=== PATIENT | male | born 1980 | race Caucasian/White ===

== ENCOUNTER 2017-12-04 15:55 | Emergency (ER) | payer MEDICAID, SELFPAY ==
[2017-12-04 15:56] VITALS: BP 132/78; PULSE 94; RESP 15; TEMP 37.1; O2SAT 97; BMI 43.0
--- NOTE | 2017-12-04 16:08 | ED.DCSUM_ITS ---
- ER Visit Summary Date of Service: 12/04/17 Chief Complaint: Laceration History of Present Illness: The patient is a 37 M [id number] laceration right hand and finger 45 minutes prior to arrival. Trying to pry open can when he cut his finger and his palm. Tetanus unknown. No anticoagulants. No paresthesias. Physical Examination: General: Alert and oriented ?3, no acute distress HEENT: Normocephalic, atraumatic. Moist mucosa membranes Neck: supple, nontender. Cardiovascular: Regular rate and rhythm, no murmurs Respiratory: Normal breath sounds, symmetric, no distress Abdomen: Soft, nontender, nondistended Extremities: Nontender, no edema, pulses intact ?4. Right hand: Active full range of motion index at the PIP and DIP with no pain against resistance. Neuro: no focal neurological deficits. Skin: Right hand: Thenar aspect 1 cm superficial laceration dry blood, index with a 2 and half centimeter flap laceration of the middle phalanx volar subcu exposure, no tendon exposure. No active bleeding. Test Results: [] Emergency Department Course and Treatment: Patient injuries were no tendon or complexity. Right index repaired using a total of 3, 5-0simple sutures. Right palm repaired with 1, 5-0 sutures. Tetanus was updated. Wound care discussed. Follow-up with his PCP for suture removal. Treatment Plan: [] Disposition: Discharge Impression: 1. Right index laceration 2. Right hand laceration 3. Tetanus update This note was generated with [employer] dictation software. It may contain incorrect words, spelling, and punctuation that were not noted in review of the chart prior to signing ED Disposition - Plan for ED Patient: Disposition: Home or Assisted Living Chief Complaint: Laceration Diagnosis: Laceration of right index finger w/o foreign body w/o damage to nail, Laceration of right hand, Tetanus toxoid vaccination administered at current visit Instructions: ED Laceration Hand Referrals: Pete Fraire MD [Primary Care Provider] - 10-14 Days suture removal
[2017-12-04] MEDS: Diphth,Pertuss(Acell),Tet Vac 0.5 ML Vial IM (16:34)
[2017-12-04 16:53] VITALS: BP 120/76; PULSE 81; RESP 18; O2SAT 96
== END 2017-12-04 16:54 | disposition home or self-care (01) ==
LOC: ED 16:41
PROVIDERS: Emergency Provider Emergency Medicine; Family Provider Family Medicine; PCP Family Medicine
DX: S61.210A Laceration without foreign body of right index finger without damage to nail, initial encounter (principal); S61.411A Laceration without foreign body of right hand, initial encounter; W26.8XXA Contact with other sharp object(s), not elsewhere classified, initial encounter; Y93.89 Activity, other specified; F32.9 Major depressive disorder, single episode, unspecified; F41.9 Anxiety disorder, unspecified; Z79.899 Other long term (current) drug therapy
CPT/HCPCS: 12002; 90715; 99284

== ENCOUNTER 2018-11-08 09:00 | Emergency (ER) | payer SELFPAY ==
[2018-11-08 09:00] VITALS: BP 147/87; PULSE 105; RESP 17; TEMP 36.8; O2SAT 95; BMI 39.3
--- NOTE | 2018-11-08 09:41 | EKG12_ITS ---
Test Reason : DIZZINESS Blood Pressure : / mmHG Vent. Rate : 091 BPM Atrial Rate : 091 BPM P-R Int : 184 ms QRS Dur : 090 ms QT Int : 342 ms P-R-T Axes : 063 -54 038 degrees QTc Int : 420 ms Normal sinus rhythm Left axis deviation Low voltage QRS Abnormal ECG Confirmed by COLBY AMADOR, OLGA ([id number]), publishing editor HAO WARD ([id number]) on 11/10/2018 1:40:58 PM Referred By: KYM Confirmed By:PORTIA BOWMAN MD
--- NOTE | 2018-11-08 09:42 | ED.DCSUM_ITS ---
History of Present Illness Chief Complaint: Dizziness Detail of Chief Complaint: Dizzy, visual hallucinations Informant: Patient, Family Onset: Days Narrative: Patient presents with his mother for evaluation. He states he had difficulty sleeping for the past 2 weeks. He got a phone call this morning that his contract for his job was not going to be renewed and he is now out of the job. He reportedly woke his mother up at 3:00 this morning stating that his sister and [id number] were there and he was going to go cook for them. There was no one in the home. Is also making comments today about his nephews being in the home and they were not present. Patient reportedly had some dizziness earlier this morning. He stated that when he would first stand up or for sit down he would feel dizzy briefly, but symptoms were quickly subside. He denied chest pain or palpitations. Patient does have a history of depression and is treated at the counseling center. He denies recent changes to his medication. He states that when the nurse in triage asked him questions about depression and suicidality, he and answered truthfully and stated that he had had thoughts recently. He denies active suicidal thoughts to me at this present time. - Past Medical History (1) Major depressive disorder Status: Acute Past Medical History - Allergies and Home Meds Allergies/Adverse Reactions: Allergies latex Allergy (Verified 11/08/18 09:00) Swelling DUST Allergy (Uncoded 11/08/18 09:00) Shortness of breath TAPE Adverse Reaction (Uncoded 11/08/18 09:00) Other Primary Care Physician: Pete Fraire MD [Primary Care Provider] - Prior records reviewed: Yes Past Medical History: - - Reviewed Lives: With Family Smoking Status: Never smoker Review of Systems General: Denies: Chills, Fever Eyes: Denies: Visual changes - bilaterally ENT: Denies: Bilateral ear pain, Sore throat Cardiovascular: Denies: Chest pain, Palpitations Respiratory: Denies: Dyspnea, Cough Gastrointestinal: Denies: Abdominal pain, Nausea, Vomiting, Diarrhea Genitourinary: Denies: Dysuria Musculoskeletal: Denies: Neck pain, Back pain, Extremity Pain Skin: Denies: Rash Neurological: Denies: Headache Psych: Reports: Depression, Suicidal thoughts Hematologic: Denies: Easy bruising Allergy: Denies: Uticaria Physical Exam Vital Signs/Narrative: Vital Signs Temp Pulse Resp BP Pulse Ox 11/08/18 09:00 98.3 F 105 H 17 147/87 H 95 General: Well nourished, Well developed Head: Normocephalic ENT: Moist mucous membranes Neck: Supple Cardiovascular: Regular rate, Regular rhythm Respiratory: No distress, CTA bilaterally Abdomen: Soft, Nontender, Normal bowel sounds Extremities: Nontender, No edema Skin: Normal color, No rash Neurological: Alert, Oriented x3 Psychological: Normal affect - Flat affect. Denies active suicidal thoughts. Diagnostic/Tx/Re-eval Laboratory Results 11/08/18 11/08/18 11/08/18 09:38 10:00 10:00 WBC 14.9 H RBC 5.11 Hgb 14.2 Hct 43.6 MCV 85.3 MCH 27.8 MCHC 32.6 RDW Std Deviation 38.4 RDW Coeff of Gala 12.3 Plt Count 311 MPV 10.0 Immature Gran % (Auto) 0.700 Neut % (Auto) 76.1 H Lymph % (Auto) 16.6 L [place] % (Auto) 5.2 Eos % (Auto) 0.9 Baso % (Auto) 0.5 Absolute Neuts (auto) 11.3 H Absolute Lymphs (auto) 2.46 Nucleated RBC % 0 Sodium 136 Potassium 4.1 Chloride 105 Carbon Dioxide 26.0 Anion Gap 5 BUN 17 Creatinine 0.86 Estim Creat Clear Calc 129.08 Est GFR (MDRD) Af Amer 130 Est GFR (MDRD) Non-Af 107 BUN/Creatinine Ratio 19.9 Glucose 103 Calcium 9.4 Urine Color Urine Clarity Urine pH Ur Specific [place] Urine Protein Urine Glucose (UA) Urine Ketones Urine Occult Blood Urine Nitrite Urine Bilirubin Urine Urobilinogen Ur Leukocyte Esterase Urine RBC Urine WBC Ur Squamous Epith Cells Urine Bacteria Urine Mucus Urine Opiates Screen Urine Methadone Screen Ur Barbiturates Screen Ur Phencyclidine Scrn Ur Amphetamines Screen U Methamphetamin-MDMA U Benzodiazepines Scrn [place] 0.40 L Urine Cocaine Screen U Cannabinoids Screen Ur Drug Screen Comment Ethyl Alcohol 11/08/18 11/08/18 11/08/18 10:00 10:25 10:25 WBC RBC Hgb Hct MCV MCH MCHC RDW Std Deviation RDW Coeff of [place] Plt Count MPV Immature Gran % (Auto) Neut % (Auto) Lymph % (Auto) [place] % (Auto) Eos % (Auto) Baso % (Auto) Absolute Neuts (auto) Absolute Lymphs (auto) Nucleated RBC % Sodium Potassium Chloride Carbon Dioxide Anion Gap BUN Creatinine Estim Creat Clear Calc Est GFR (MDRD) Af Amer Est GFR (MDRD) Non-Af BUN/Creatinine Ratio Glucose Calcium Urine Color Yellow Urine Clarity Clear Urine pH 6.0 Ur Specific [place] 1.015 Urine Protein Negative Urine Glucose (UA) Normal Urine Ketones Negative Urine Occult Blood Negative Urine Nitrite Negative Urine Bilirubin Negative Urine Urobilinogen Normal Ur Leukocyte Esterase Negative Urine RBC 0 SEEN Urine WBC 0 SEEN Ur Squamous Epith Cells 0 SEEN Urine Bacteria 0 SEEN Urine Mucus 0 SEEN Urine Opiates Screen NEGATIVE Urine Methadone Screen NEGATIVE Ur Barbiturates Screen NEGATIVE Ur Phencyclidine Scrn NEGATIVE Ur Amphetamines Screen NEGATIVE U Methamphetamin-MDMA NEGATIVE U Benzodiazepines Scrn NEGATIVE [place] Urine Cocaine Screen NEGATIVE U Cannabinoids Screen POSITIVE H Ur Drug Screen Comment Ethyl Alcohol 6.0 - EKG Initial EKG Interpretation: Sinus Rhythm - Sinus at 91 with no acute ischemia. - Medical Decision Making Patient remained stable throughout his ED stay. He was evaluated by crisis. Patient states that he has been off his sleeping meds for the past 3 weeks. He started taking Ambien again just recently. He thinks he actually took 2 tabs last night and thinks that is probably why he had the visual hallucinations. He reports chronic suicidal thoughts without any intention to act on them. Mother states that she will take his medications and dispenses appropriately until he is back on his Ambien on a regular basis. He is able to sign a safety contract and counseling center will follow up with him tomorrow. ED Disposition - Plan for ED Patient: Disposition: Home or Assisted Living Diagnosis: Dizziness, Medication side effect Instructions: Tips for Taking Medications Referrals: Pete Fraire MD [Primary Care Provider] -
--- NOTE | 2018-11-08 09:44 | NURSING ---
NO OLD EKGS
--- NOTE | 2018-11-08 09:53 | NURSING ---
NO OLD EKGS
[2018-11-08 10:17] LABS: Absolute Lymphocyte Count 2.46 X10^3/uL (0.83-4.51); Absolute Neutrophil Count 11.3 X10^3/uL (2.0-7.7); Basophil# 0.08 X10^3/uL; Basophil% 0.5 % (0-1); Eosinophil# 0.14 X10^3/uL; Eosinophils% 0.9 % (0-5); Hematocrit 43.6 % (40-54); Hemoglobin 14.2 g/dL (13.0-16.5); Lymphocyte # 2.46 X10^3/ul (4.0); Lymphocyte % 16.6 % (19-41); Mean Corp Hgb Conc 32.6 g/dL (32-36); Mean Corpuscular Hgb 27.8 pg (27.0-32.0); Mean Corpuscular Volume 85.3 fL (80-94); Monocyte# 0.77 X10^3/uL; Monocyte% 5.2 % (0-10); NRBC Flagged by Analyzer 0 % (0-5); Neutrophil % 76.1 % (47-70); Platelet Count 311 K/mm3 (150-450); RBC Distribution Width CV 12.3 % (11.6-14.6); RBC Distribution Width SD 38.4 fl (35.1-43.9); Red Blood Count 5.11 M/mm3 (4.6-6.2); White Blood Count 14.9 K/mm3 (4.4-11.0)
[2018-11-08 10:18] LABS: Anion Gap 5 (5-15); BUN 17 mg/dL (7-18); BUN/Creat Ratio 19.9 RATIO (10-20); Calcium,Total 9.4 mg/dL (8.5-10.1); Chloride 105 mmol/L (98-107); Creatinine, Serum 0.86 mg/dL (0.70-1.30); EST Glomerular Filtration Rate 107 mL/min (>60); Est Glom Filt Rate - Afr Amer 130 mL/min (>60); Estimated Creatinine Clearance 129.08 ml/min; Glucose 103 mg/dL (74-106); Potassium 4.1 mmol/L (3.5-5.1); Sodium Level 136 mmol/L (136-145)
[2018-11-08] MEDS: 0.9% Normal Saline 1,000 ML 1000 ML IV (10:22)
[2018-11-08 10:42] LABS: Bacteria 0 SEEN /hpf (None Seen); Color, Urine Yellow (Yellow); Glucose, Dipstick Normal (Normal); Ketone-Dipstick Negative (Negative); Leukocyte Esterase-Dipstick Negative /ul (Negative); Mucous, Urine 0 SEEN /hpf (<or=2+); Nitrite-Dipstick Negative (Negative); Occult Blood-Urine Negative /ul (Negative); Protein-Dipstick Negative (Negative); Red Blood Cells-Urine 0 SEEN /hpf (0-5); Specific Gravity, Urine 1.015 (1.002-1.030); Squamous Epithelial Cells - UA 0 SEEN /hpf (0-5); Urine Bilirubin Dipstick Negative (Negative); Urine Clarity Clear (Clear); Urine Urobilinogen Normal (Normal); White Blood Cells 0 SEEN /hpf (0-5)
[2018-11-08 11:00] VITALS: RESP 16
[2018-11-08 11:16] LABS: Amphetamine Urine VISTA NEGATIVE (<1000 ng/mL); Barbiturate Urine VISTA NEGATIVE (< 200 ng/mL); Benzodiazepine Urine VISTA NEGATIVE (< 200 ng/mL); Cocaine Urine VISTA NEGATIVE (< 300 ng/mL); Ecstacy Urine VISTA NEGATIVE (< 500 ng/mL); Methadone Urine VISTA NEGATIVE (< 300 ng/mL); PCP Urine VISTA NEGATIVE (< 25 ng/mL); THC Urine VISTA POSITIVE (< 50 ng/mL); Vista UDS pH Range 6
--- NOTE | 2018-11-08 11:55 | CM.ED ---
SOCIAL WORK REVIEWED PATIENT WITH NURSING AND DR. MEJÍA. PATIENT FOLLOWS WITH CRISIS. CALLED AND UPDATED CRISIS ON PATIENT. 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
[2018-11-08 12:00] VITALS: RESP 16
--- NOTE | 2018-11-08 12:08 | NURSING ---
PER VENANCOI, ASIYA, SAQIB IS COMING
[2018-11-08 13:42] VITALS: BP 135/96; PULSE 84; RESP 17; O2SAT 97
[2018-11-08 14:16] VITALS: PULSE 88; RESP 16; O2SAT 98
== END 2018-11-08 14:17 | disposition home or self-care (01) ==
PROVIDERS: Emergency Provider Emergency Medicine; Family Provider Family Medicine; PCP Family Medicine
DX: R42 Dizziness and giddiness (principal); R44.1 Visual hallucinations; T42.6X5A Adverse effect of other antiepileptic and sedative-hypnotic drugs, initial encounter; F32.9 Major depressive disorder, single episode, unspecified
CPT/HCPCS: 80048; 80178; 80307; 80320; 81001; 85025; 93005; 96360; 99283; J7030; G0480